=== PATIENT | male | born 1980 | race Caucasian/White ===

== ENCOUNTER 2017-07-11 08:49 | Emergency (ER) | payer OTHER ==
[~2017-07-11] VITALS: Ht 182.9 cm; Wt 84.4 kg
[2017-07-11] MEDS ORDERED: SODIUM CHLORIDE 0.9% 1000ML 1,000 ML IV STA ×2 (08:57→10:04)
[2017-07-11] MEDS ORDERED: FENTANYL CITRATE INJ 50 MCG/1 ML 2 ML VIAL IV STA (08:57)
--- NOTE | 2017-07-11 09:03 | EMERGENCY ROOM VISIT NOTE ---
History Report prepared by Manny: Maximilian Bose Under the Supervision of: Dr. Garrick Joaquin M.D. First contact with patient: 08:51 Chief Complaint: ABDOMINAL PAIN Stated Complaint: LLQ ABDOM. PAIN History of Present Illness The patient is a 37 year old male who presents to the Emergency Room via [facility] from the corrections facility with complaints of persistent left lower quadrant abdominal pain that started around 5 hours ago. He states that the pain woke him up. The patient says that pain radiates a bit into the left side of his back. He notes that the pain worsens when he presses on the area. The patient says that he did not swallow anything abnormal or have anything stuck up his anus. He states that he has not had any recent falls. He denies any rashes, or history of kidney stones or heart failure. The patient says that he has been incarcerated for 11 years. He is a smoker. Source of History: patient Onset: Around 5 hours ago Position: abdomen (LLQ) Symptom Intensity: woke him up Timing: other (persistent) Modifying Factors (Worsening): other (pressing on area) Associated Symptoms: + back pain, No rash Note: Associated symptoms: Denies any recent falls. Review of Systems See HPI for pertinent positives & negatives. A total of 10 systems reviewed and were otherwise negative. Past Medical & Surgical Medical Problems: (1) No pertinent past medical history Family History No pertinent family history Social History Smoking Status: Current Every Day Smoker Drug Use: none Housing Status: other (half-way) Occupation Status: other (half-way) Current/Historical Medications No Active Prescriptions or Reported Meds Allergies Coded Allergies: No Known Allergies (Unverified , 07/11/17) Physical Exam Vital Signs Date Time Temp Pulse Resp B/P (MAP) Pulse Ox O2 Delivery O2 Flow Rate FiO2 07/11/17 12:37 97 18 113/68 98 07/11/17 10:42 97 18 117/72 98 Room Air 07/11/17 09:11 36.4 53 16 118/68 100 Room Air 07/11/17 08:58 49 Physical Exam GENERAL: Patient is severely uncomfortable appearing, writhing in bed. EYES: No scleral icterus, unremarkable pupils. ENT: Mucous membranes moist, no nasal congestion. NECK: No masses appreciated, no meningismus, trachea is midline. RESPIRATORY: No dyspnea. Clear to auscultation and equal bilaterally. No wheeze , no rhonchi. CARDIOVASCULAR: Regular rate and rhythm. No murmurs, rubs, gallops appreciated. GASTROINTESTINAL: Abdomen soft, exquisite tenderness to palpation of left lower quadrant, mild left flank tenderness to palpation, no peritonitis. Bowel sounds positive. No masses appreciated. BACK: No midline tenderness, no CVA tenderness EXTREMITIES: Normal motion all extremities, no cyanosis, no edema. NEUROLOGIC: Alert and oriented, no acute motor or sensory deficits, no focal weakness, cranial nerves grossly intact. SKIN: No rash, no jaundice, no diaphoresis. Medical Decision & Procedures ER Provider Diagnostic Interpretation: CT results are stated below per my interpretation and the radiologist's interpretation. CT ABD/PELVIS IV CONTRAST ONLY CLINICAL HISTORY: Left flank/left lower quadrant abdominal pain COMPARISON STUDY: None. TECHNIQUE: Following the IV administration of 92 mL of Optiray-320, CT scan of the abdomen and pelvis was performed from the lung bases to the proximal femurs. Images are reviewed in the axial, sagittal, and coronal planes. IV contrast was administered without complication. A dose lowering technique was utilized adhering to the principles of ALARA. CT DOSE: 304.72 mGy.cm FINDINGS: Lower chest: The heart is normal in size and configuration, without pericardial effusion. The lung bases and pleural spaces are clear. Liver: The contrast-enhanced liver is normal in size, contour, and attenuation. There is no intrahepatic biliary ductal dilatation. The hepatic veins and portal veins are patent. Gallbladder: Unremarkable. Spleen: Normal in size and attenuation. Pancreas: Unremarkable. Adrenal glands: Unremarkable. Kidneys: There is minimal fullness of the left renal collecting system. There is minimal prominence of the left ureter. There is a 3 mm left UVJ calculus. Bowel: There are no transition zones indicate bowel obstruction. There is no acute diverticulitis. There is mild fecal retention. There are no findings to indicate acute appendicitis. The appendix is not visualized with certainty. Peritoneum: There is no intraperitoneal free air or abdominal ascites. Vasculature: The abdominal aorta is normal in course and caliber. Adenopathy: None. Pelvic viscera: The bladder, and pelvic viscera are unremarkable. Skeletal structures: No destructive osseous lesions are seen. IMPRESSION: 1. 3 mm left UVJ calculus with mild secondary obstructive changes 2. No evidence of bowel obstruction. No evidence of free air. Mild fecal retention. Electronically signed by: Eliecer Bain M.D. 07/11/2017 9:31 AM Dictated Date/Time: 07/11/2017 9:27 AM Laboratory Results 07/11/17 09:05 Red Blood Count 4.66, Mean Corpuscular Volume 89.7, Mean Corpuscular Hemoglobin 31.1, Mean Corpuscular Hemoglobin Concent 34.7, Mean Platelet Volume 10.2, Neutrophils (%) (Auto) 88.3, Lymphocytes (%) (Auto) 5.9, Monocytes (%) (Auto) 5.2, Eosinophils (%) (Auto) 0.3, Basophils (%) (Auto) 0.1, Neutrophils # (Auto) 12.34, Lymphocytes # (Auto) 0.82, Monocytes # (Auto) 0.73, Eosinophils # (Auto) 0.04, Basophils # (Auto) 0.02 07/11/17 09:05 Test 07/11/17 09:05 07/11/17 09:06 07/11/17 11:28 White Blood Count 13.98 K/uL (4.8-10.8) Red Blood Count 4.66 M/uL (4.7-6.1) Hemoglobin 14.5 g/dL (14.0-18.0) Hematocrit 41.8 % (42-52) Mean Corpuscular Volume 89.7 fL (80-100) Mean Corpuscular Hemoglobin 31.1 pg (25-34) Mean Corpuscular Hemoglobin Concent 34.7 g/dl (32-36) Platelet Count 133 K/uL (130-400) Mean Platelet Volume 10.2 fL (7.4-10.4) Neutrophils (%) (Auto) 88.3 % Lymphocytes (%) (Auto) 5.9 % Monocytes (%) (Auto) 5.2 % Eosinophils (%) (Auto) 0.3 % Basophils (%) (Auto) 0.1 % Neutrophils # (Auto) 12.34 K/uL (1.4-6.5) Lymphocytes # (Auto) 0.82 K/uL (1.2-3.4) Monocytes # (Auto) 0.73 K/uL (0.11-0.59) Eosinophils # (Auto) 0.04 K/uL (0-0.5) Basophils # (Auto) 0.02 K/uL (0-0.2) RDW Standard Deviation 42.7 fL (36.4-46.3) RDW Coefficient of Variation 13.1 % (11.5-14.5) Immature Granulocyte % (Auto) 0.2 % Immature Granulocyte # (Auto) 0.03 K/uL (0.00-0.02) Est Creatinine Clear Calc Drug Dose 106.8 ml/min Estimated GFR () 104.9 Estimated GFR (Non- 90.5 BUN/Creatinine Ratio 10.6 (10-20) Calcium Level 9.3 mg/dl (8.5-10.1) Total Bilirubin 0.5 mg/dl (0.2-1) Direct Bilirubin 0.1 mg/dl (0-0.2) Aspartate Amino Transf (AST/SGOT) 14 U/L (15-37) Alanine Aminotransferase (ALT/SGPT) 22 U/L (12-78) Alkaline Phosphatase 61 U/L (45-117) Total Protein 7.0 gm/dl (6.4-8.2) Albumin 4.2 gm/dl (3.4-5.0) Lipase 81 U/L (73-393) Bedside Hemoglobin 14.3 g/dl (14.0-18.0) Bedside Hematocrit 42 % (42-52) Bedside Sodium 142 mEq/L (135-144) Bedside Potassium 3.8 mEq/L (3.3-5.0) Bedside Chloride 106 mEq/L (101-112) Bedside Total CO2 24 mEq/l (24-31) Anion Gap 17.0 mmol/L (16-25) Bedside Blood Urea Nitrogen 10 mg/dl (7-18) Bedside Creatinine 1.0 mg/dl (0.6-1.3) Bedside Glucose (other) 126 mg/dl (70-99) Bedside Ionized Calcium (Jamie) 1.17 mmol/l (1.12-1.32) Urine Color YELLOW Urine Appearance CLEAR (CLEAR) Urine pH 8.0 (4.5-7.5) Urine Specific [place] 1.030 (1.000-1.030) Urine Protein NEG (NEG) Urine Glucose (UA) NEG (NEG) Urine Ketones NEG (NEG) Urine Occult Blood 2+ (NEG) Urine Nitrite NEG (NEG) Urine Bilirubin NEG (NEG) Urine Urobilinogen NEG (NEG) Urine Leukocyte Esterase NEG (NEG) Urine WBC (Auto) 1-5 /hpf (0-5) Urine RBC (Auto) 10-30 /hpf (0-4) Urine Hyaline Casts (Auto) 0 /lpf (0-5) Urine Epithelial Cells (Auto) 0-5 /lpf (0-5) Urine Bacteria (Auto) NEG (NEG) Laboratory results as reviewed by me. Medications Administered Medications (Trade) Dose Ordered Sig/Katerine Route Start Time Stop Time Status Last Admin Dose Admin Fentanyl Citrate (Fentanyl Inj) 100 mcg NOW STAT IV 07/11/17 08:57 07/11/17 08:58 DC 07/11/17 09:31 100 MCG Sodium Chloride 1,000 ml @ 999 mls/hr Q1H1M STAT IV 07/11/17 08:57 07/11/17 09:57 DC 07/11/17 09:31 999 MLS/HR Ketorolac Tromethamine (Toradol Inj) 30 mg NOW STAT IV 07/11/17 09:51 07/11/17 09:52 DC 07/11/17 09:59 30 MG Sodium Chloride 1,000 ml @ 999 mls/hr Q1H1M STAT IV 07/11/17 10:04 07/11/17 11:04 DC 07/11/17 10:42 999 MLS/HR ECG Per My Interpretation Indication: abdominal pain Rate (beats per minute): 57 Rhythm: sinus bradycardia (with sinus arrhythmia) Findings: no acute ischemic change, no ectopy, other (normal QTC) ED Course 0853: The patient was evaluated in room A2. A complete history and physical exam was performed. 0948: I reevaluated the patient and he is feeling much better, with just some mild soreness throughout the left flank. 1014: I reevaluated the patient and updated him. He is feeling better. 1040: I reevaluated the patient and he is still trying to give us a urine sample. 1127: I reevaluated the patient and he is trying to urinate. 1216: Reevaluated the patient and he is feeling great and would like to go home. He has no further pain. Discussed results and discharge instructions: he verbalized understanding and agreement. The patient is ready for discharge. Medical Decision Differential: Renal Colic, Pyelonephritis, Hydronephrosis, Appendicitis, Diverticulitis, Retroperitoneal Bleed/Infection, Aortic Pathology, MSK, Neurologic Pathology, amongst other pathologies entertained. 37 yr old prisoner with sudden onset left flank pain radiating to groin this morning. Very uncomfortable appearing and he does have quite some TTP over LLQ. Given this felt imaging necessary and IV contrast reasonable to exclude intraabdominal process. Mild WBC elevation likely stress related. CT with distal left ureteral stone. Symptoms much improved with fentanyl and then resolved essentially with fluids and toradol. He is comfortable over next few hours without further issue. I suspect he has passed stone already and given how he has needed no further narcotics I do not feel he needs them Rx. He has no evidence infectious UA and Cr is good. Otherwise labs, vitals looks good and he is stable and breathing comfortably. Medication Reconcilliation Current Medication List: was personally reviewed by me Blood Pressure Screening Patient's blood pressure: Normal blood pressure Impression Primary Impression: Left ureteral calculus Scribe Attestation The scribe's documentation has been prepared under my direction and personally reviewed by me in its entirety. I confirm that the note above accurately reflects all work, treatment, procedures, and medical decision making performed by me. Departure Information Dispostion Home / Self-Care Prescriptions No Active Prescriptions or Reported Meds [facility]errals [facility] ([facility] Patient Instructions My [facility] [address] Additional Instructions A 3mm stone was found in the end of your left Ureter just before the bladder. This is commonly referred to as a "kidney stone" when they cause pain. Keep well hydrated and use Tylenol/Ibuprofen for pain. Return if severe worsening of pain, vomiting, fevers, passing out or other concerns. Follow up with [facility] for further evaluation, especially if increased pain medication needs.
[2017-07-11 09:11] VITALS: TEMP 36.4; Ht 182.9 cm; Wt 84.4 kg
[2017-07-11 09:12] LABS: BASO % 0.1 %; BASO ABS # 0.02 K/uL (0-0.2); EOS % 0.3 %; EOS ABS # 0.04 K/uL (0-0.5); HEMATOCRIT 41.8 % (42-52); HEMOGLOBIN 14.5 g/dL (14.0-18.0); IG# 0.03 K/uL (0.00-0.02); LYMPH % 5.9 %; LYMPH ABS # 0.82 K/uL (1.2-3.4); MEAN CELL VOLUME 89.7 fL (80-100); MEAN CORPUSCULAR HEMOGLOBIN 31.1 pg (25-34); MEAN CORPUSCULAR HGB CONC 34.7 g/dl (32-36); MEAN PLATELET VOLUME 10.2 fL (7.4-10.4); MONO % 5.2 %; MONO ABS # 0.73 K/uL (0.11-0.59); NEUT % 88.3 %; NEUT ABS # 12.34 K/uL (1.4-6.5); PLATELET COUNT 133 K/uL (130-400); RED CELL DISTRIBUTION WIDTH CV 13.1 % (11.5-14.5); RED CELL DISTRIBUTION WIDTH SD 42.7 fL (36.4-46.3); WHITE BLOOD COUNT 13.98 K/uL (4.8-10.8)
[2017-07-11] MEDS ORDERED: OPTIRAY 320 IV PRN (09:15)
[2017-07-11 09:21] LABS: ISTAT IONIZED CALCIUM 1.17 mmol/l (1.12-1.32); ISTAT POTASSIUM 3.8 mEq/L (3.3-5.0)
[2017-07-11 09:29] LABS: ALBUMIN 4.2 gm/dl (3.4-5.0); CALCIUM 9.3 mg/dl (8.5-10.1); CREATININE 1.06 mg/dl (0.60-1.40); POTASSIUM 3.8 mmol/L (3.5-5.1)
--- NOTE | 2017-07-11 09:32 | DIAGNOSTIC IMAGING REPORT ---
CT ABD/PELVIS IV CONTRAST ONLY CLINICAL HISTORY: Left flank/left lower quadrant abdominal pain COMPARISON STUDY: None. TECHNIQUE: Following the IV administration of 92 mL of Optiray-320, CT scan of the abdomen and pelvis was performed from the lung bases to the proximal femurs. Images are reviewed in the axial, sagittal, and coronal planes. IV contrast was administered without complication. A dose lowering technique was utilized adhering to the principles of ALARA. CT DOSE: 304.72 mGy.cm FINDINGS: Lower chest: The heart is normal in size and configuration, without pericardial effusion. The lung bases and pleural spaces are clear. Liver: The contrast-enhanced liver is normal in size, contour, and attenuation. There is no intrahepatic biliary ductal dilatation. The hepatic veins and portal veins are patent. Gallbladder: Unremarkable. Spleen: Normal in size and attenuation. Pancreas: Unremarkable. Adrenal glands: Unremarkable. Kidneys: There is minimal fullness of the left renal collecting system. There is minimal prominence of the left ureter. There is a 3 mm left UVJ calculus. Bowel: There are no transition zones indicate bowel obstruction. There is no acute diverticulitis. There is mild fecal retention. There are no findings to indicate acute appendicitis. The appendix is not visualized with certainty. Peritoneum: There is no intraperitoneal free air or abdominal ascites. Vasculature: The abdominal aorta is normal in course and caliber. Adenopathy: None. Pelvic viscera: The bladder, and pelvic viscera are unremarkable. Skeletal structures: No destructive osseous lesions are seen. IMPRESSION: 1. 3 mm left UVJ calculus with mild secondary obstructive changes 2. No evidence of bowel obstruction. No evidence of free air. Mild fecal retention. Electronically signed by: Eliecer Bain M.D. 07/11/2017 9:31 AM Dictated Date/Time: 07/11/2017 9:27 AM
[2017-07-11] MEDS ORDERED: KETOROLAC TROMETHAMINE 30 MG/ML VIAL IV STA (09:51)
[2017-07-11 12:37] VITALS: BP 113/68; PULSE 97; O2SAT 98
== END 2017-07-11 12:38 | disposition home or self-care (01) ==
LOC: EDBD 08:49 → C.EDA 08:51
DX: N20.1 Calculus of ureter (principal); F17.200 Nicotine dependence, unspecified, uncomplicated